=== PATIENT | female | born 2005 | race Caucasian/White ===

== ENCOUNTER 2024-07-13 18:18 | Emergency (ER) | payer OTHER, SELFPAY ==
[2024-07-13 18:47] VITALS: BP 143/78; PULSE 68; RESP 20; TEMP 36.6; O2SAT 100; BMI 217.1
[2024-07-13 21:41] LABS: Add Manual Diff / Slide Review NO; Basophils Absolute Auto 0 /uL (0-100); Basophils Percent Auto 0.5 % (0-2); Eosinophils Absolute Auto 0 /uL (0-450); Eosinophils Percent Auto 0.4 % (2-4); Hematocrit 42.4 % (36-46); Hemoglobin 14.5 g/dL (12.0-16.0); Lymphocytes Absolute Auto 1900 /uL (1100-4500); Lymphocytes Percent Auto 29.3 % (25-40); Mean Corpuscular HGB Conc 34.2 % (30-36); Mean Corpuscular Hemoglobin 30.2 PG (26-34); Mean Corpuscular Volume 88.2 fL (80-100); Monocytes Absolute Auto 400 /uL (0-900); Monocytes Percent Auto 5.4 % (3-14); Neutrophils Absolute Auto 4200 /uL (1500-7000); Neutrophils Percent Auto 64.4 % (50-75); Platelet Count 246 X10^3/uL (150-400); Red Blood Cell Count 4.81 X10^6/uL (4.0-5.2); Red Cell Distribution Width 12.8 % (11.6-14.8); White Blood Cell Count 6.6 X10^3/uL (4.5-11.0)
[2024-07-13 21:53] LABS: Alanine Aminotransferase 19 IU/L (<35); Albumin 4.9 g/dL (3.5-5.0); Albumin Globulin Ratio 1.6 (1.0-2.8); Alkaline Phosphatase 75 U/L (38-126); Aspartate Aminotransferase 22 IU/L (14-36); BUN Creatinine Ratio 17.9 (6-22); Bilirubin Total 0.6 mg/dL (0.2-1.3); Blood Urea Nitrogen 12 mg/dL (7-17); Calcium 9.7 mg/dL (8.4-10.2); Carbon Dioxide 25 mmol/L (22-32); Chloride 104 mmol/L (98-107); Estimated Glomerular Filt Rate > 60 mL/min (>60); Glucose 94 mg/dL (70-99); HEMOLYSIS < 15 (0-50); Potassium 3.9 mmol/L (3.4-5.1); Sodium 139 mmol/L (137-145); Total Protein 7.9 g/dL (6.3-8.2)
[2024-07-13 21:56] LABS: Urine Volume 10mL (spun)
[2024-07-13 21:57] LABS: Bacteria Urine Few (2-10); Culture Indicated Urine Cult Not Indicated; RBC Urine 0-1/HPF (0-5/HPF); WBC Urine 1-5/HPF (0-5/HPF)
[2024-07-13 22:05] LABS: Squamous Epithelial Cell Urine 1-5 /HPF (0-5/HPF)
--- NOTE | 2024-07-13 22:40 | PC.NURSE ---
c/o vaginal bleeding x one week s/p having a pap
--- NOTE | 2024-07-13 23:30 | ED.FEMALEGU ---
HPI - Female Genitourinary General Chief complaint: Urogenital-Female Stated complaint: pap a week ago still bleeding Time Seen by Provider: 07/13/24 23:10 Source: patient, RN notes reviewed and old records reviewed Mode of arrival: Ambulatory Limitations: no limitations History of Present Illness HPI Narrative: 19-year-old female no reported medical issues presents with complaint of persistent vaginal bleeding after having a Pap smear last Thursday approximately 5 days ago. Patient states was her 1st Pap smear she was told she would have some spotting for a day or 2. She had light spotting but has since increased she was going through a pad or a tampon 1-2 times daily. States she was not having any pain. She was not have any other vaginal discharge. Fevers. No abdominal back or flank discomfort. No dysuria urgency or frequency. She has not IUD in place already. She states no other intervention she did have testing for gonorrhea chlamydia which was negative. She reached out to friends who told her to be evaluated. Patient denies any other medical issues. No known allergies. Does use tobacco. Related Data Allergies Allergy/AdvReac Type Severity Reaction Status Date / Time No Known Allergies Allergy Verified 07/13/24 18:53 Review of Systems Review of Systems ROS Unobtainable: All systems reviewed & are unremarkable except as noted in HPI and below Patient History tobacco type: vaping Exam Narrative Exam Narrative: GENERAL: Alert and oriented x three, well-appearing female in no acute HEENT: Head normocephalic, atraumatic, EOMI, pupils reactive, face symmetric, moist mucous membranes NECK: Supple, full range of motion CARDIOVASCULAR: Regular rate and rhythm without murmurs, rubs or gallops. RESPIRATORY: Breath sounds equal bilaterally, no wheezes rales or rhonchi. ABDOMEN: Soft, nontender. Normoactive bowel sounds all 4 quadrants. No guarding or rebound, rigidity, no mass : No CVA tenderness. Female: external vaginal exam is normal, no vaginal bleeding, scant amount of yellow discharge, there is also some slight erythema to the cervix itself, IUD appears to be in place strings are visualized, no cervical motion tenderness, normal speculum exam, no adnexal tenderness/mass. Bimanual exam is normal, no enlarged or tender uterus. Non-gravid. 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 EXTREMITIES: Normal range of motion, no clubbing or edema. Neurovascularly intact NEUROLOGICAL: Cranial nerves II through XII grossly intact. Moving all extremities SKIN: Warm, dry, no petechiae, no rashes or lesions. Initial Vital Signs Initial Vital Signs: Vital Signs Temperature 98 F 07/13/24 18:47 Pulse Rate 68 07/13/24 18:47 Respiratory Rate 20 07/13/24 18:47 Blood Pressure 143/78 H 07/13/24 18:47 Pulse Oximetry 100 07/13/24 18:47 Oxygen Delivery Method Room Air 07/13/24 18:47 Course Orders Ordered: ED Orders 07/13/24 21:24 Complete Blood Count AUTO DIFF Stat Comprehensive Metabolic Panel Stat Urine Microscopic Stat 07/14/24 00:10 Genital Culture Stat Vital Signs Vital signs: Vital Signs - 8 hr 07/14/24 00:30 Pulse Rate 70 Respiratory Rate 18 Blood Pressure 136/74 Pulse Oximetry 100 Oxygen Delivery Method Room Air MDM - Female Genitourinary Lab Data 07/13/24 21:24 07/13/24 21:24 Labs: Lab Results 07/13/24 Range/Units 21:24 WBC 6.6 (4.5-11.0) X10^3/uL RBC 4.81 (4.0-5.2) X10^6/uL Hgb 14.5 (12.0-16.0) g/dL Hct 42.4 (36-46) % MCV 88.2 (80-100) fL MCH 30.2 (26-34) PG MCHC 34.2 (30-36) % RDW 12.8 (11.6-14.8) % Plt Count 246 (150-400) X10^3/uL Neut % (Auto) 64.4 (50-75) % Lymph % (Auto) 29.3 (25-40) % Fountain % (Auto) 5.4 (3-14) % Eos % (Auto) 0.4 L (2-4) % Baso % (Auto) 0.5 (0-2) % Neut # (Auto) 4200 (5723-4338) /uL Lymph # (Auto) 1900 (3930-5763) /uL Fountain # (Auto) 400 (0-900) /uL Eos # (Auto) 0 (0-450) /uL Baso # (Auto) 0 (0-100) /uL Sodium 139 (137-145) mmol/L Potassium 3.9 (3.4-5.1) mmol/L Chloride 104 (98-107) mmol/L Carbon Dioxide 25 (22-32) mmol/L BUN 12 (7-17) mg/dL Creatinine 0.67 (0.52-1.04) mg/dL Estimated GFR > 60 (>60) mL/min BUN/Creatinine Ratio 17.9 (6-22) Glucose 94 (70-99) mg/dL Calcium 9.7 (8.4-10.2) mg/dL Total Bilirubin 0.6 (0.2-1.3) mg/dL AST 22 (14-36) IU/L ALT 19 (<35) IU/L Alkaline Phosphatase 75 (38-126) U/L Total Protein 7.9 (6.3-8.2) g/dL Albumin 4.9 (3.5-5.0) g/dL Globulin 3.0 (1.7-4.1) g/dL Albumin/Globulin Ratio 1.6 (1.0-2.8) Urine RBC 0-1/hpf (0-5/HPF) Urine WBC 1-5/hpf (0-5/HPF) Ur Squamous Epith Cells 1-5 /hpf (0-5/HPF) Urine Bacteria Few (2-10) H (None) Ur Culture Indicated? Cult not indicated Vol Urine Centrifuged 10ml (spun) Point of Care Testing Test Results Negative Urine Dip Bedside Urine Glucose Negative Bedside Urine Bilirubin - Negative Bedside Urine Ketone - Negative Urine Specific Horner 1.015 Bedside Urine Occult Blood +/- Bedside Urine pH 6.0 Bedside Urine Protein - Negative Bedside Urine Urobilinogen - Negative Bedside Urine Nitrite - Negative Bedside Urine Leukocytes +/- 15 Esterase MDM Narrative Medical decision making narrative: Labs show normal white count hemoglobin and platelets, chemistries are appropriate BUN and creatinine is normal, LFTs are negative. Urine is negative, point of care urine shows leuks, blood, no nitrates. Few bacteria 1 red cell 1-5 white cells 1-5 squamous. Patient notes had a Pap smear week ago in his still having bleeding bright red notes enough to wear a tampon has not IUD in place at baseline. Does not normally have menses. Does note that she had STI testing last we get her Pap smear which was negative. Patient's labs are overall normal, on exam there is a very scant amount of infection patient is nontender this could be post Pap smear changes discussed with the patient about starting oral antibiotics she just had STI testing which was negative the past 5 days she defers and would like to follow up but we will send genital culture. Discussed I would have her still follow up with her provider who performed her Pap smear. Discussed return precautions all questions answered. Discharge Plan Departure Patient Disposition: Home Clinical Impression: Vaginal bleeding Instructions: DI for Vaginal Bleeding Activity Restrictions/Additional Instructions: Please follow up with your provider performed your Pap smear if you are continuing to have any bleeding. Call tomorrow to set up an appointment. A genital culture was sent this is currently pending it takes 48-72 hours to result typically and if positive you would be contacted. Please return if you have new abdominal back or flank pain, fevers, vomiting, new discharge, worsening bleeding going through a pad or tampon more than hourly or other new or concerning changes. Stand Alone Forms: Patient Portal/API
[2024-07-14 00:30] VITALS: BP 136/74; PULSE 70; RESP 18; O2SAT 100
== END 2024-07-14 00:33 | disposition home or self-care (01) ==
PROVIDERS: Emergency Provider Emergency Medicine
DX: N93.9 Abnormal uterine and vaginal bleeding, unspecified (principal)
CPT/HCPCS: 36415; 80053; 81003; 81015; 81025; 85025; 87070; 87205; 99283; 99284